=== PATIENT | male | born 2000 | race Caucasian/White ===

== ENCOUNTER → 2019-10-20 14:46 | Outpatient (BNVA) | payer BC, SELFPAY | PROVIDERS: Family Provider Internal Medicine; Visit Provider Psychiatry & Neurology Psychiatry | DX: F41.1 Generalized anxiety disorder (principal); F60.5 Obsessive-compulsive personality disorder; F40.10 Social phobia, unspecified | CPT/HCPCS: 99204 ==

== ENCOUNTER 2021-11-02 14:38 | Outpatient (CLI) | payer BC, SELFPAY ==
--- NOTE | 2021-11-02 | XR_ITS ---
WS: [id number] ABDOMEN KUB CLINICAL INFORMATION: Abdominal pain COMPARISON: None. FINDINGS: Normal bowel gas pattern. Scattered air and normal caliber small and large bowel. Mild RIGHT colon an d cecal constipation. No significant bowel distention XR/XR KUB [id number] Impression: Mild RIGHT colon and cecal constipation.
== END 2021-11-02 14:39 | disposition home or self-care (01) ==
LOC: RADOUTREAD 11-03 14:52
PROVIDERS: Family Provider Internal Medicine; Visit Provider Nurse Practitioner
DX: R10.84 Generalized abdominal pain (principal); K56.41 Fecal impaction
CPT/HCPCS: 74018

== ENCOUNTER 2024-12-10 06:02 | Emergency (ER) | payer SELFPAY ==
[2024-12-10 06:24] VITALS: BP 137/90; PULSE 92; RESP 22; TEMP 36.4; O2SAT 100; BMI 27.3
--- NOTE | 2024-12-10 06:26 | XR_ITS ---
WS: [id number] Exam: XR chest 1V portable [id number] Date/Time of Exam: 12/10/2024 6:37 AM Reason For Exam: sob Comparison 01/16/2019. Lungs are clear. Normal cardiomediastinal silhouette and regional bony elements. No pleural effusion. XR/XR chest 1V portable [id number] IMPRESSION: 1. Normal chest.
--- NOTE | 2024-12-10 06:29 | ED_ITS ---
HPI - Anxiety 2 General: Chief Complaint: Anxiety Stated Complaint: tingling and numbess arms and face Time Seen by Provider: 12/10/24 06:04 Source: patient Mode of arrival: ambulatory Limitations: no limitations History of Present Illness: 24-year-old male states that he woke up this morning started having chest pressure shortness of breath states he was having tingling to his bilateral arms face. He appears anxious here with some tachypnea. He states he does not feel like he is having anxiety attack denies any vomiting or diarrhea denies any worse or improving factors. Associated symptoms: Reports chest pain and palpitations; Deny chills, fever(s), headache(s), nausea or vomiting Related Data Home Medications ?Medication ?Instructions ?Recorded ?Confirmed No Known Home Medications 10/20/1902/03 Allergies Allergy/AdvReac Type Severity Reaction Status Date / Time acetaminophen (From Allergy Severe rash all Verified 02/23/21 13:04 [facility] Cold-Flu) over chlorpheniramine (From Allergy Severe rash all Verified 02/23/21 13:04 [facility] Cold-Flu) over dextromethorphan (From Allergy Severe rash all Verified 02/23/21 13:04 [facility] Cold-Flu) over phenylephrine (From Allergy Severe rash all Verified 02/23/21 13:04 [facility] Cold-Flu) over Review of Systems 2 Const: Denies: fever(s), chills, body aches or change in appetite ENMT: Denies: throat pain or dental pain Card: Reports: chest pain and palpitations Resp: Reports: dyspnea GI: Denies: abdominal pain, nausea, vomiting or diarrhea Musc: Denies: neck pain or back pain Skin/Breast: Denies: rash Neuro: Denies: headache(s) PFSH ED 2 PFSH: Social History Smoking and tobacco/nicotine status: never used tobacco/nicotine Second hand smoke exposure: No Current gender identity: Male Physical Exam 2 Const: COMMON NORMALS: no acute distress, patient oriented x3 and healthy appearing HENMT: COMMON NORMALS: normocephalic and atraumatic HEAD & SCALP: n ormocephalic and atraumatic Eye: COMMON NORMALS: conjunctivae normal CONJUNCTIVA: Yes conjunctivae normal Neck/C-Spine: COMMON NORMALS: full ROM and supple Chest: COMMONS NORMALS: normal inspection of the chest Resp: COMMON NORMALS: No retractions, No use of accessory muscles and clear to auscultation bilaterally EFFORT & INSPECTION: Yes tachypneic AUSCULTATION: clear to auscultation bilaterally Cardio: COMMON NORMALS: regular rate, regular rhythm and No murmurs present (Cardio) RATE: regular rate RHYTHM: regular rhythm GI: COMMON NORMALS: Normal to inspection, nondistended, normoactive bowel sounds present, Soft to palpation, non-tender and no masses PALPATION: Yes Soft to palpation Extremity: COMMON NORMALS: normal to inspection and full ROM Neuro: COMMON NORMALS: patient oriented x3, moves all extremities and no focal motor deficits Psych: COMMON NORMALS: mental status grossly normal, Normal thought process present and cooperative THOUGHT PROCESS: Normal thought process present Skin: COMMON NORMALS: no rashes or lesions noted and no wounds GENERAL SKIN EXAM: no rashes or lesions noted Course 2 Vital Signs: Vital signs: Vital Signs Temperature 97.6 F 12/10/24 06:24 Pulse Rate 52 L 12/10/24 07:03 Respiratory Rate 20 H 12/10/24 06:41 Blood Pressure 137/90 12/10/24 07:03 Pulse Oximetry 100 12/10/24 07:03 Oxygen Delivery Me thod Room Air 12/10/24 06:41 MDM - Anxiety Medical Decision Making Patient presents here with paresthesias along with some chest pains likely an anxiety attack he feels improved after Ativan blood work here is normal EKG x- ray is normal he stable for discharge. Medical Records I reviewed the patient's medical records. Lab Data I reviewed the patient's lab results. 12/10/24 06:27 12/10/24 06:27 Laboratory Results WBC 7.54 10^3/uL (3.29-11.43) 12/10/24 06:27 RBC 6.08 10^6/uL (3.85-5.65) H 12/10/24 06:27 Hgb 17.70 g/dL (11.27-16.99) H 12/10/24 06:27 Hct 51.2 % (37-53) 12/10/24 06:27 MCV 84.2 fl (82-101) 12/10/24 06:27 MCH 29.1 pg (27-33) 12/10/24 06:27 MCHC 34.6 g/dL (30-55) 12/10/24 06:27 RDW 12.6 % (12.1-15.1) 12/10/24 06:27 Plt Count 235 10^3/cmm (157-399) 12/10/24 06:27 MPV 10.4 fL (7.4-10.4) 12/10/24 06:27 Neut % (Auto) 47.1 % 12/10/24 06:27 Lymph % (Auto) 43.6 % 12/10/24 06:27 Bates % (Auto) 7.2 % 12/10/24 06:27 Eos % (Auto) 1.2 % 12/10/24 06:27 Baso % (Auto) 0.5 % 12/10/24 06:27 Neut # (Auto) 3.55 10^3/uL (1.8-7.7) 12/10/24 06:27 Lymph # (Auto) 3.3 10^3/uL (0.8-4.8) 12/10/24 06:27 Bates # (Auto) 0.5 10^3/uL (0.2-0.9) 12/10/24 06:27 Eos # (Auto) 0.1 10^3/uL (0.0-0.8) 12/10/24 06:27 Baso # (Auto) 0.0 10^3/uL (0.0-0.1) 12/10/24 06:27 Nucleated RBC % (auto) 0 % 12/10/24 06:27 Nucleated RBCs # 0.0 /100WBC 12/10/24 06:27 Sodium 140 mmol/L (136-145) 12/10/24 06:27 Potassium 3.7 mmol/L (3.5-5.1) 12/10/24 06:27 Chloride 101 mmol/L (98-107) 12/10/24 06:27 Carbon Dioxide 21 mmol/L (22-29) L 12/10/24 06:27 Anion Gap 21.7 (5-19) H 12/10/24 06:27 BUN 16 mg/dL (6-20) 07/09/25 06:27 Creatinine 1.0 mg/dL (0.7-1.2) 12/10/24 06:27 GFR Calculation 90.3 mL/min (90-130) 12/10/24 06:27 Glucose 104 mg/dL (65-115) 12/10/24 06:27 Calculated Osmolality 291 mOsm/kg (285-295) 12/10/24 06:27 Calcium 10.0 mg/dL (8.5-10.5) 12/10/24 06:27 Total Bilirubin 1.1 mg/dL (0.15-1.2) 12/10/24 06:27 AST 40 U/L (0-40) 12/10/24 06:27 ALT 63 U/L (0-41) H 12/10/24 06:27 Alkaline Phosphatase 81 U/L (40-130) 12/10/24 06:27 Total Protein 7.7 g/dL (6.6-8.7) 12/10/24 06:27 Albumin 4.7 g/dL (3.5-5.2) 12/10/24 06:27 Globulin 3.0 g/dL (1.3-4.6) 12/10/24 06:27 Lipase 33 U/L (13-60) 12/10/24 06:27 All radiology interpretation(s) finalized by discharge EKG Data EKG 1: I personally reviewed and interpreted this EKG as follows: EKG interpretation date: 12/10/24 EKG interpretation time: 06:30 Interpretation: nsr hr [address] elevation qrs 101 qtc 405 Discharge Plan Discharge Patient Disposition: Home Clinical Impression: Paresthesia Condition: Stable Prescriptions: No Action No Known Home Medications Discharge Orders: Discharge ED (Routine); Ordered 12/10/24 Ordered By: Sindy Plaza Referrals: Sudeep Sandoval MD [Primary Care Provider, Family Practice] - 4-7 days Discharge Diet: Advance as tolerated Discharge Activity: Resume usual activity Patient Instructions: Paresthesia (ED) Print Language: [place]ayan Coding Level of Care Code ED Senior Embedded Software Engineer for [employer] Naveen
--- NOTE | 2024-12-10 06:30 | ECG_ITS ---
[facility]: 2024[facility]10 Pat Name: Anupam Arcos Department: Room: Gender: Male Networking Technician: : 2000 Requested By: Sindy Plaza Order Number: [id number] Renuka MD: Glendy Nguyen M.D. Measurements Intervals Cana Rate: 92 P: 67 OR: 139 QRS: 55 QRSD: 101 T: 55 QT: 355 QTc: 441 Interpretive Statements SINUS RHYTHM POSSIBLE LEFT ATRIAL ENLARGEMENT [-0.1mV P-WAVE IN V1/V2] No previous ECG available for comparison Electronically Signed On 12-10-2024 20:17:54 CDT by Glendy Nguyen M.D. [email or web address]
[2024-12-10] MEDS: LORazepam 1 MG/0.5 ML injection IVP (06:37)
[2024-12-10 06:41] VITALS: BP 137/90; PULSE 76; RESP 20; O2SAT 100
[2024-12-10 07:01] LABS: Hematocrit 51.2 % (37-53); Hemoglobin 17.70 g/dL (11.27-16.99); Mean Corpuscular HGB Conc 34.6 g/dL (30-55); Mean Corpuscular Hemoglobin 29.1 pg (27-33); Mean Corpuscular Volume 84.2 fl (82-101); Nucleated Red Blood Cells % 0 %; Platelet Count 235 10^3/cmm (157-399); Red Blood Count 6.08 10^6/uL (3.85-5.65); White Blood Count 7.54 10^3/uL (3.29-11.43)
[2024-12-10 07:03] VITALS: BP 137/90; PULSE 52; O2SAT 100
[2024-12-10 07:03] LABS: Alanine Aminotransferase 63 U/L (0-41); Albumin Level 4.7 g/dL (3.5-5.2); Alkaline Phosphatase 81 U/L (40-130); Anion Gap 21.7 (5-19); Aspartate Amino Transferase 40 U/L (0-40); Blood Urea Nitrogen 16 mg/dL (6-20); Calcium 10.0 mg/dL (8.5-10.5); Carbon Dioxide 21 mmol/L (22-29); Chloride 101 mmol/L (98-107); Creatinine Clr Calc Pharmacy 120.3112; Globulin 3.0 g/dL (1.3-4.6); Glucose 104 mg/dL (65-115); Lipase 33 U/L (13-60); Osmolality Calculated 291 mOsm/kg (285-295); Potassium 3.7 mmol/L (3.5-5.1); Sodium 140 mmol/L (136-145); Total Protein 7.7 g/dL (6.6-8.7)
[2024-12-10 07:29] VITALS: BP 131/86; PULSE 81; O2SAT 98
== END 2024-12-10 07:41 | disposition home or self-care (01) ==
PROVIDERS: Emergency Provider Emergency Medicine; PCP Family Medicine
DX: R20.2 Paresthesia of skin (principal)
CPT/HCPCS: 71045; 80053; 83690; 85025; 93005; 96374; 99285; J2060